=== PATIENT | female | born 1945 | race Caucasian/White ===

== ENCOUNTER 2020-02-05 01:42 | Inpatient (IN) | payer MEDICARE ==
[2020-02-05 02:09] LABS: #Eosinphils 0.1 thou/uL (0.0-0.7); #Lymphocytes 1.2 thou/uL (1.20-3.40); #Monocytes 0.8 thou/uL (0.11-0.59); %Basophils 0.5 % (0.0-1.0); %Eosinophils 0.8 % (0.0-10.0); %Lymphocytes 11.6 % (21.0-51.0); %Monocytes 8.3 % (0.0-10.0); %Neutrophils 78.8 % (42.0-75.0); Hemoglobin 14.9 g/dL (12.0-16.0); Mean Corpuscular HGB CONC 32.7 g/dL (32.0-36.0); Mean Corpuscular Hemoglobin 30.1 pg (27.0-31.0); Mean Platelet Volume 7.6 fL (7.4-10.4); Platelet Count 184 thou/uL (130-400); RBC Distribution Width 12.3 % (11.5-14.5); Red Blood Cell (RBC) Count 4.95 mill/uL (4.20-5.40); White Blood Cell (WBC) Count 10.1 thou/uL (4.8-10.8)
[2020-02-05] MEDS ORDERED: Diltiazem HCl 125 MG, Admixture Fee 1 EACH in Sodium Chloride 0.9% 100 ML IVPB SCH ×2 (02:15→06:17)
[2020-02-05 02:20] LABS: INR-International Normal Ratio 3.9; PTT 46.9 SEC (22.9-36.1); Prothrombin Time 38.1 SEC (12.0-14.7)
[2020-02-05 02:34] LABS: ALT (SGPT) 66 U/L (8-55); AST (SGOT) 37 U/L (5-34); Albumin 3.8 g/dL (3.4-4.8); Alkaline Phosphatase 100 U/L (40-110); Anion Gap 11 mmol/L (10-20); BUN (Urea Nitrogen) 15 mg/dL (9.8-20.1); Bilirubin, Total 0.5 mg/dL (0.2-1.2); Calc. Creatinine Clearance 0 mL/min (70-130); Calcium 8.9 mg/dL (7.8-10.44); Carbon Dioxide 29 mmol/L (23-31); Chloride 106 mmol/L (98-107); Estimated GFR-MDRD 69; Globulin 2.5 g/dL (2.4-3.5); Glucose 166 mg/dL (83-110); Protein, Total 6.3 g/dL (6.0-8.3); Sodium 142 mmol/L (136-145)
[2020-02-05] MEDS ORDERED: Furosemide 100 MG/10 ML VIAL ONE (04:23)
[2020-02-05 05:49] LABS: Troponin I 0.016 ng/mL (< 0.028)
[2020-02-05] MEDS ORDERED: Nitroglycerin 0.4 MG TAB (25 Tab Bottle) PO PRN (06:18)
[2020-02-05] MEDS ORDERED: Diltiazem 125 MG in Sodium Chloride 0.9% 100 ML IVPB SCH ×2 (06:30→17:21)
[2020-02-05] MEDS ORDERED: Calcium Carbonate 500 MG ChewTAB PO PRN (06:48)
[2020-02-05] MEDS ORDERED: Acetaminophen 325 MG TAB PO PRN (06:48)
[2020-02-05] MEDS ORDERED: Labetalol HCl 100 MG/20 ML VIAL SLOW IVP PRN (06:54)
[2020-02-05] MEDS ORDERED: Magnesium Sulfate 3 GM in Sodium Chloride 0.9% 100 ML IVPB SCH (07:00)
--- NOTE | 2020-02-05 07:35 | HP ---
PRIMARY CARE PHYSICIAN: Dr. Botello. PRIMARY HISTORIC INTERPRETER: Dr. Kowalski. CHIEF COMPLAINT: Palpitations. HISTORY OF PRESENT ILLNESS: The patient is a 75-year-old female with coronary artery disease with recent diagnosis of atrial fibrillation, on warfarin, presented to the emergency room with palpitations. The palpitations started around midnight. It was sudden in onset, associated with mild lightheadedness along with shortness of breath. Her heart rate was in 170s to 180s. She called EMS. No chest pain, lower extremity swelling, or abdominal discomfort reported. She denies any syncope. She is out of digoxin. No fever or chills reported. The patient was found to have atrial fibrillation with rapid ventricular response. She received IV Cardizem push by EMS. She is currently on Cardizem drip. PAST MEDICAL HISTORY: 1. Coronary artery disease, status post CABG x5 in 2003. 2. Obstructive sleep apnea. 3. History of TIA. 4. Recent diagnosis of atrial fibrillation. The patient also had atrial fibrillation post CABG. PAST SURGICAL HISTORY: 1. Coronary artery bypass grafting in 2003. 2. Nasal surgery for sleep apnea. 3. Tubal ligation. 4. 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 ALLERGIES: THE PATIENT DENIES ANY DRUG ALLERGIES. FAMILY HISTORY: Negative for heart disease. SOCIAL HISTORY: She is . No tobacco use. She is a retired teacher. She is full code and makes her own decision with the help of her family. CURRENT HOME MEDICATIONS: Her took her medications at home. She states that she is on, 1. Aspirin. 2. Lipitor. 3. Metoprolol. 4. Warfarin. 5. Benazepril. 6. Digoxin. 7. Lasix, dosages to be confirmed. REVIEW OF SYSTEMS: All other review of systems was reviewed and was found negative. PHYSICAL EXAMINATION: VITAL SIGNS: Temperature 98, respirations 20, pulse rate of 98, blood pressure of 143/92, and O2 saturation 92% on room air. GENERAL: A 75-year-old female in no apparent distress. HEENT: Head, atraumatic and normocephalic. Sclerae anicteric. Moist mucous membranes. No oral lesion. NECK: Supple. No JVD. No carotid bruit. LUNGS: Clear to auscultation bilaterally. No wheezing, rales, or rhonchi. HEART: S1 and S2 present. Irregularly irregular. No rubs or gallops. ABDOMEN: Soft, obese. Bowel sounds present. EXTREMITIES: Trace to 1+ edema in bilateral lower extremities. No calf tenderness. SKIN: Warm and dry. LYMPH NODES: No palpable lymph nodes in the neck. PERIPHERAL VASCULAR: Radial pulses palpable bilaterally. MUSCULOSKELETAL: No joint swelling tenderness. LABORATORY FINDINGS: CBC showed WBC 10.1 with hemoglobin 14.9, hematocrit 45.6, and platelet 184. INR 3.9. Chemistry showed sodium 142, potassium 4, chloride 106, bicarb 29, BUN of 15, and creatinine 0.81. AST of 37, ALT of 66. BNP 328. Troponin was negative. EKG by my review showed atrial fibrillation with rapid ventricular response. Chest x-ray by my review showed pulmonary vascular congestion. IMPRESSION: 1. Atrial fibrillation with rapid ventricular response. 2. Suspected congestive heart failure exacerbation. 3. Coronary artery disease, status post CABG in 2003. 4. Hypertension. 5. Hyperlipidemia. 6. History of obstructive sleep apnea. 7. Chronic kidney disease, stage 2. 8. Abnormal liver function tests, probably secondary to passive hepatic congestion. 9. Supratherapeutic INR. PLAN: The patient will be monitored on the telemetry unit. Cardizem drip will be continued. Cardiology will be consulted. We will check digoxin level with the next blood draw. Please note, the patient is out of digoxin. She recently had an echocardiogram at Dr. Kowalski's office. We will resume selected home medications. We will change Lasix to p.o. The patient understands the above plan of care. Job ID: [id number]
--- NOTE | 2020-02-05 08:40 | RAD ---
PORTABLE CHEST 1 VIEW: DATE: 02/05/2020. TIME: 1:42 AM. HISTORY: Palpitations, dyspnea. FINDINGS/IMPRESSION: Comparison is made with the exam of 01/16/2004. There are changes of median sternotomy. The heart is enlarged. The lungs are expanded with mild pro minence of the pulmonary vascularity. No lobar consolidation, pneumothoraces, or large effusions are seen. POS: [facility]
[2020-02-05 08:51] LABS: Digoxin 0.26 ng/mL (0.8-2.0)
[2020-02-05 08:56] LABS: Troponin I 0.015 ng/mL (< 0.028)
[2020-02-05] MEDS ORDERED: Furosemide 20 MG TAB PO SCH (09:00)
[2020-02-05] MEDS ORDERED: Metoprolol Tartrate 50 MG TAB PO SCH (09:00)
[2020-02-05 14:27] VITALS: BMI 36.6
[2020-02-05] MEDS ORDERED: Iopamidol-370 76% 500 ML 1 ML ONE (14:56)
[2020-02-05] MEDS: Furosemide 40 MG TAB PO SCH ×2 (15:36→16:00)
[2020-02-05] MEDS: Famotidine 20 MG TAB PO SCH ×2 (15:58→21:05)
[2020-02-05] MEDS: Aspirin 81 mg Enteric Coated Tablet PO SCH (16:00)
--- NOTE | 2020-02-05 18:01 | CT ---
CT PULMONARY ANGIOGRAM WITH IV CONTRAST AND 3D POSTPROCESSING: Date: 02/05/2020 HISTORY: Shortness of breath and tachycardia. FINDINGS: There is good contrast opacification of the pulmonary arterial vasculature without filling defects to suggest pulmonary embolism. There are vascular calcifications without evidence of aneurysmal dilatat ion of the thoracic aorta. No pericardial effusions seen. There are small bilateral pleural effusions (right larger than left) with adjacent infiltrates/atelectatic changes. No pneumothoraces are seen. There are degenerative changes in the spine. Upper abdominal tomograms are unremarkable. IMPRESSION: No CT evidence of pulmonary embolism. POS: [facility]
[2020-02-05] MEDS: Metoprolol Tartrate 25 MG TAB PO SCH (21:05)
[2020-02-05] MEDS: Atorvastatin Calcium 20 MG TAB PO SCH (21:05)
--- NOTE | 2020-02-06 01:06 | CON ---
DATE OF CONSULTATION: HISTORY OF PRESENT ILLNESS: Please refer the notes already dictated by my nurse practitioner, Reema Meehan. I have seen this patient with and would agree with her assessment and plan. We discussed the patient in detail and I would agree with the plan which is laid out. This is a very unfortunate lady who is 75 years old, has been found to have atrial fibrillation. She was seen in the office and was started on oral anticoagulation with the hopes that we could be able to at least anticoagulate her for about a month prior to undergoing to attempt electrocardioversion of her atrial fibrillation, either by medicine or by electrical cardioversion. She was at home recently and it was noted that she was having some shortness of breath and was checking her blood pressure. Blood pressure was significantly elevated. Her heart rate was also elevated and she presented to the emergency room and was found to be in atrial fibrillation with rapid ventricular response. Her blood pressure is in the 170s/100. This has improved after she receiving an IV diltiazem. She is still in atrial fibrillation, but the heart rate is under better control, but still in the low one 100s, anywhere between 90-100, but she denied any chest pain. We will continue to manage her medications. She had been placed previously on digoxin as well as beta-blockers and diltiazem for control of the heart rate. If we are unable to control the heart rate, she may need to undergo early cardioversion, but this would entail having to undergo a transesophageal echocardiogram prior to undergoing the cardioversion. We will see how she response to medications and we will discuss this further tomorrow morning. She also underwent a CT angiogram today, which showed no evidence of pulmonary emboli. Since she does complain of some shortness of breath, her echocardiogram in the office was performed on 01/29/2020, which showed a normal left ventricular systolic function, low normal ejection fraction of 50% to 55%. with mild left ventricular hypertrophy and biatrial enlargement. Her left atrium was 4.6. She had moderate mitral valve regurgitation as well as mild tricuspid valve regurgitation. The right ventricle did appear to be mildly dilated also. Today, her chest is clear to auscultation and cardiovascular exam reveals a tachycardia with an irregular regular rhythm. She had minimal lower extremity edema. Abdomen is unremarkable. IMPRESSION: Atrial fibrillation with a relatively recent onset, which is felt to be relatively recent, but uncertain as to the actual time of the onset of the atrial fibrillation. We will plan for medical management and then oral anticoagulation for at least a month prior to attempting cardioversion or early transesophageal cardiogram, if we cannot control the heart rate with either medications or electrical cardioversion. Hypertension. Her blood pressure is under better control at this time. We will need to continue to monitor her. She did have a good urine output and this has helped her blood pressure somewhat, but now her blood pressure is well controlled and stable. If it becomes too low, we may need to back off on some of her medications that have been started here in the hospital. We could decrease her labetalol or stop the labetalol IV and continue p.o. medications. Job ID: [id number]
[2020-02-06 04:38] LABS: #Eosinphils 0.2 thou/uL (0.0-0.7); #Lymphocytes 1.5 thou/uL (1.20-3.40); #Monocytes 0.8 thou/uL (0.11-0.59); #Neutrophils 5.3 thou/uL (1.40-6.50); %Basophils 0.2 % (0.0-1.0); %Eosinophils 2.3 % (0.0-10.0); %Lymphocytes 18.8 % (21.0-51.0); %Monocytes 10.8 % (0.0-10.0); Hemoglobin 13.8 g/dL (12.0-16.0); Mean Corpuscular HGB CONC 31.7 g/dL (32.0-36.0); Mean Corpuscular Hemoglobin 29.5 pg (27.0-31.0); Mean Corpuscular Volume 92.9 fL (78.0-98.0); Mean Platelet Volume 7.8 fL (7.4-10.4); Platelet Count 175 thou/uL (130-400); RBC Distribution Width 12.6 % (11.5-14.5); Red Blood Cell (RBC) Count 4.69 mill/uL (4.20-5.40); White Blood Cell (WBC) Count 7.8 thou/uL (4.8-10.8)
[2020-02-06 04:44] LABS: Prothrombin Time 39.2 SEC (12.0-14.7)
[2020-02-06 04:51] LABS: INR-International Normal Ratio 4.1
[2020-02-06 05:00] LABS: ALT (SGPT) 55 U/L (8-55); AST (SGOT) 30 U/L (5-34); Albumin 3.8 g/dL (3.4-4.8); Alkaline Phosphatase 94 U/L (40-110); Anion Gap 13 mmol/L (10-20); BUN (Urea Nitrogen) 10 mg/dL (9.8-20.1); Bilirubin, Total 0.6 mg/dL (0.2-1.2); Calc. Creatinine Clearance 111 mL/min (70-130); Calcium 8.5 mg/dL (7.8-10.44); Carbon Dioxide 31 mmol/L (23-31); Chloride 103 mmol/L (98-107); Estimated GFR-MDRD 77; Globulin 2.5 g/dL (2.4-3.5); Glucose 143 mg/dL (83-110); Potassium 3.5 mmol/L (3.5-5.1); Protein, Total 6.3 g/dL (6.0-8.3); Sodium 143 mmol/L (136-145)
--- NOTE | 2020-02-06 08:50 | CON ---
DATE OF CONSULTATION: PRIMARY CARE DOCTOR: Dr. Botello. PRIMARY HAUL TRUCK DRIVER: Dr. Jojo Kowalski. REASON FOR CARDIOLOGY CONSULTATION: Atrial fibrillation with rapid ventricular response. HISTORY OF PRESENT ILLNESS: Ms. Monreal is a very present 75-year-old female with significant history of coronary artery disease with a history of CABG x5 in 2003, hypertension, atrial fibrillation, sleep apnea, TIA, and hyperlipidemia. The patient was found to have atrial fibrillation at Dr. Kowalski' office about 2-1/2 weeks ago. At that time, digoxin 0.125 mg with loading dose was prescribed with Coumadin and after that, the patient agreed to have Eliquis. On 01/28, the patient followed up with Dr. Kowalski' office. At that time, the patient continued having atrial fibrillation with heart rate 70s to 120s. Metoprolol succinate 50 mg was increased from 1-1/2 tablet once a day to 1 tablet twice a day. The patient had an echocardiogram on 01/28, with EF 50% to 55%, mild left ventricular hypertrophy, biatrial enlargement, atrial fibrillation, moderate mitral valve regurgitation, mild tricuspid regurgitation, mild pulmonic regurgitation. IV appears mildly dilated. Last night around midnight, the patient started having lightheadedness, shortness of breath, and the patient's blood pressure was found to be 178/101 with heart rate around 180 to 105. The patient tried to check the blood pressure several times, which was continued to be high. Due to the reason, the patient called EMS. The patient was transferred to emergency department for further evaluation and treatment. At the ER, the patient was found to have heart rate 130s. At this moment, the patient is on Cardizem drip 5 mg an hour with heart rate 90s to 130s. The patient denied chest pain, heaviness, tightness, dizziness, numbness in the left arm, except that she complained of shortness of breath and lightheadedness. The patient had an echocardiogram done 01/29/2020, with EF 50% to 55%, with biatrial enlargement. LA dimension is 4.6. The patient had CABG x5 in 2003 with MATUTE to LAD, RSV to ramus, RSV to OM, RSV and RSV to PL branch. The patient has a stress test in October 2018 with no reversible ischemia with EF 62%. MEDICAL HISTORY: 1. Atrial fibrillation. 2. CAD. 3. Sleep apnea. 4. TIA. 5. Hypertension. 6. Hyperlipidemia. PAST SURGICAL HISTORY: CABG x5 in 2003, corneal transplant, nasal surgery for sleep apnea, and bilateral tubal ligation. FAMILY HISTORY: Negative for heart disease. SOCIAL HISTORY: She is . She is retired. She is living with her . She denies EtOH, tobacco, or illicit drug abuse. She is a retired teacher. She does not exercise. ALLERGIES: SHE HAS NO KNOWN DRUG ALLERGIES. MEDICATIONS: 1. Multivitamin. 2. Aspirin 81 mg once a day. 3. Zyrtec 10 mg once a day. 4. Digoxin 0.125 mg once a day. 5. Lipitor 20 mg once a day. 6. Benazepril 40 mg once a day. 7. Lasix 20 mg once a day. 8. Eliquis 5 mg twice a day. 9. Metoprolol succinate 50 mg 1 tablet twice a day. REVIEW OF SYSTEMS: 12-point review of systems negative unless otherwise mentioned in HPI. The patient reports that today she continued taking digoxin until yesterday. Today, she ran out the medicine, but her already picked up the medicine from pharmacy today. PHYSICAL EXAMINATION: VITAL SIGNS: Blood pressure 108/67, temperature 97.8, pulse is 104, respiratory rate 18, O2 saturation 94% on room air,. GENERAL: The patient is alert and oriented x4, not in acute distress. HEENT: Normocephalic, atraumatic. Eyes, extraocular muscle movement intact. ENT and mouth; oral and nasal mucosa moist without lesion. NECK: Supple. Normal range of motion. No JVD. RESPIRATORY: Clear to auscultate bilaterally. No wheezing, rales, or rhonchi noted. CARDIOVASCULAR: Irregularly irregular. No S3 or S4. No significant murmur, hives, or thrill noted. 2+ pulses in bilateral upper and lower extremities. No edema in the lower extremities. ABDOMEN: Soft, nontender. No mass to palpitate. Bowel sounds are present. SKIN: Warm and dry. No lesion, rash, or erythema noted. NEUROLOGICAL: The patient is alert and oriented x4. Nonfocal. PSYCHIATRIC: The patient's mood is appropriate. LABORATORY DATA: WBC 10.1, hemoglobin 14.9, hematocrit 45.6, platelet 184. INR 3.9. Sodium 142, potassium 4.0, BUN 15, creatinine 0.81, glucose 166, magnesium 1.7. AST 37, ALT 66. Troponin is 0.016, 0.016, and 0.015. BNP is 328. Digoxin level is 0.26. The patient's x-ray showing enlarged heart, the patient's lungs are expanded with mild prominence of pulmonary vascularity. No lobar consolidation, pneumothorax, trace or large effusion seen. ASSESSMENT AND PLAN: 1. Atrial fibrillation with rapid ventricular response. The patient is on diltiazem 5 mg heart rate 90 to 130s. Diltiazem is going to be increased to 7.5 mg . She is on metoprolol 50 mg twice a day, which I would like to decrease to 25 mg once a day with diltiazem. Her INR is 3.9, her Coumadin is on hold and once the patient's INR down to less than 3, Eliquis is going to be started. At this moment, the patient is asymptomatic. We would like to continue to monitor the patient on the telemetry. 2. mildly hypotensive. We would like to continue to monitor this patient's vital signs and adjust patient medication as appropriate. 3. Coronary artery disease with history of CABG x5 in 2003. The patient's condition is stable at this moment. The patient is on beta valentin, atorvastatin, aspirin. 4. Hyperlipidemia. Again, the patient is on atorvastatin at this moment. Thank you very much for Cardiology Service to participate in the care of this patient. We will follow along the patient's care team and make further recommendations as appropriate. Job ID: [id number]
[2020-02-06] MEDS: Furosemide 40 MG TAB PO SCH ×2 (09:55→13:42)
[2020-02-06] MEDS: Aspirin 81 mg Enteric Coated Tablet PO SCH (09:55)
[2020-02-06] MEDS: Metoprolol Tartrate 25 MG TAB PO SCH ×2 (09:55→20:43)
[2020-02-06] MEDS: Famotidine 20 MG TAB PO SCH ×2 (09:55→20:42)
--- NOTE | 2020-02-06 10:51 | PDOC.HOSPP ---
- Subjective Encounter Date: 02/06/20 Subjective: No new complains - Objective Vital Signs & Weight: Vital Signs (12 hours) Temp Pulse Resp BP Pulse Ox 02/06/20 07:24 96.3 F L 89 20 147/82 H 92 L 02/06/20 03:49 97.7 F 73 18 116/63 94 L Weight Weight 243 lb I&O: 02/05/20 02/06/20 02/07/20 06:59 06:59 06:59 Intake Total 1170 Output Total 815 Balance 355 Result Diagrams: 02/06/20 04:08 02/06/20 04:08 Hospitalist ROS - Medication Medications: Active Medications Generic Name Dose Route Start Last Admin Trade Name Freq PRN Reason Stop Dose Admin Aspirin 81 mg 02/05/20 09:00 02/06/20 09:55 Ecotrin PO 81 mg DAILY AZAR Administration Atorvastatin Calcium 20 mg 02/05/20 21:00 02/05/20 21:05 Lipitor PO 20 mg HS AZAR Administration Famotidine 20 mg 02/05/20 09:00 02/06/20 09:55 Pepcid PO 20 mg BID AZAR Administration Furosemide 40 mg 02/05/20 09:00 02/06/20 09:55 Lasix PO 40 mg 0900,1400 AZAR Administration Diltiazem HCl 125 mg/ Sodium 125 mls @ 7.5 mls/hr 02/05/20 17:21 02/06/20 00: 07 Chloride IVPB 125 mls INF AZAR Administration Protocol 7.5 MG/HR Metoprolol Tartrate 25 mg 02/05/20 21:00 02/06/20 09:55 Lopressor PO 25 mg BID AZAR Administration - Exam General Appearance: NAD Eye: PERRL ENT: normocephalic atraumatic Neck: supple Heart: irregular Respiratory: CTAB, no wheezes, no rales, no ronchi, normal chest expansion Gastrointestinal: soft, non-tender, non-distended, normal bowel sounds Neurological: cranial nerve grossly intact, no focal deficits Hosp A/P (1) Atrial fibrillation with rapid ventricular response Code(s): I48.91 - UNSPECIFIED ATRIAL FIBRILLATION Status: Acute (2) CAD (coronary artery disease) Code(s): I25.10 - ATHSCL HEART DISEASE OF [place] CORONARY ARTERY W/O ANG PCTRS Status: Acute (3) HTN (hypertension) Code(s): I10 - ESSENTIAL (PRIMARY) HYPERTENSION Status: Acute (4) Chronic diastolic (congestive) heart failure Code(s): I50.32 - CHRONIC DIASTOLIC (CONGESTIVE) HEART FAILURE Status: Acute - Plan *Rate controlled on Diltiazem drip 7.g mg/hrs and metoprolol tartrate 5 mg po bid. Continue management per cardiology. Start Eliquid when IRN is 3 or below. INR 4.1 today. *CTA negative for acute abnormalities.
[2020-02-06 14:32] LABS: INR-International Normal Ratio 3.9; Prothrombin Time 37.9 SEC (12.0-14.7)
--- NOTE | 2020-02-06 15:22 | PDOC.CPN ---
- Subjective Date: 02/06/20 Time: 15:28 Interval history: The pt seen and examined. No overnight events. No cardiac complaints. - Objective Allergies/Adverse Reactions: Allergies Allergy/AdvReac Type Severity Reaction Status Date / Time No Known Drug Allergies Allergy Unverified 02/05/20 02:13 Visit Medications: Current Medications Acetaminophen (Tylenol) 650 mg PO Q4H PRN PRN Reason: Headache/Fever/Mild Pain (1-3) Aspirin (Ecotrin) 81 mg PO DAILY [facility] Last Admin: 02/06/20 09:55 Dose: 81 mg Atorvastatin Calcium (Lipitor) 20 mg PO HS [facility] Last Admin: 02/05/20 21:05 Dose: 20 mg Calcium Carbonate (Tums) 1,000 mg PO Q4H PRN PRN Reason: Heartburn or Indigestion Famotidine (Pepcid) 20 mg PO BID [facility] Last Admin: 02/06/20 09:55 Dose: 20 mg Furosemide (Lasix) 40 mg PO 0900,1400 [facility] Last Admin: 02/06/20 13:42 Dose: 40 mg Diltiazem HCl 125 mg/ Sodium (Chloride) 125 mls @ 7.5 mls/hr IVPB INF [facility]; Protocol Last Admin: 02/06/20 00:07 Dose: 125 mls Metoprolol Tartrate (Lopressor) 25 mg PO BID [facility] Last Admin: 02/06/20 09:55 Dose: 25 mg Miscellaneous Medication (Pharmacy To Dose) 1 each PO .WARFARIN [facility] Nitroglycerin (Nitrostat) 0.4 mg PO Q5MIN PRN PRN Reason: Chest Pain Senna/Docusate Sodium (Senokot S) 2 tab PO BID PRN PRN Reason: Constipation Sodium Chloride (Flush - Normal Saline) 10 ml IVF PRN PRN PRN Reason: Saline Flush Vital Signs & Weight: Vital Signs Temp Pulse Resp BP Pulse Ox 02/06/20 12:28 97.7 F 89 17 137/71 92 L 02/06/20 07:24 96.3 F L 89 20 147/82 H 92 L 02/06/20 03:49 97.7 F 73 18 116/63 94 L Weight 243 lb - Physical Exam General: alert & oriented x3 HEENT: mucus membranes moist Neck: supple neck Cardiac: irregularly regular Lungs: clear to auscultation Neuro: cranial nerve 2-12 intact Extremities: no edema - Labs Result Diagrams: 02/06/20 04:08 02/06/20 04:08 Troponin/CKMB Troponin I 0.015 ng/mL (< 0.028) 02/05/20 08:09 - Telemetry Supraventricular conduction: atrial fibrillation - Assessment/Plan Assessment/Plan: 1. Afib with RVR - HR has been 70-120s; on Diltiazem 7.5mg/h, Metoprolol 25mg BID; not on OAC for now due to INR 3.9 today; Will start Eliquis once INR is close to 2. 2. HTN urgency - stable 3. CAD with Hx of CABG x5 in 2003 - On BBlocker, ASA, and Statin 4. HLD - on Statin MAR reviewed Pt. seen and eval. by me. I agree with the A/P by the [employer] REPRESENTATIVE. Will decrease IV diltiazem or switch to po and if the rate remains controlled could go home on oral meds. I would like to continue OAC for another couple weeks prior to attempting cardioversion either medically or with electrical cardioversion. Switch to eliquis when the INR is < 2.0. The BP is under good control. Chest: clear. Irreg/irreg. Mild edema. gjmays
[2020-02-06] MEDS ORDERED: Diltiazem 125 MG in Sodium Chloride 0.9% 100 ML IVPB SCH ×2 (15:42→15:48)
[2020-02-06] MEDS: Atorvastatin Calcium 20 MG TAB PO SCH (20:42)
[2020-02-06] MEDS: Diltiazem HCl SR 90 mg Capsule PO SCH (20:42)
[2020-02-07 04:40] LABS: INR-International Normal Ratio 3.4; Prothrombin Time 33.8 SEC (12.0-14.7)
[2020-02-07] MEDS ORDERED: Lisinopril 10 MG TAB PO SCH (09:45)
[2020-02-07] MEDS: Furosemide 40 MG TAB PO SCH ×2 (09:57→14:07)
[2020-02-07] MEDS: Diltiazem HCl SR 90 mg Capsule PO SCH ×2 (09:57→20:22)
[2020-02-07] MEDS: Famotidine 20 MG TAB PO SCH ×2 (09:57→20:22)
[2020-02-07] MEDS: Aspirin 81 mg Enteric Coated Tablet PO SCH (09:57)
[2020-02-07] MEDS: Metoprolol Tartrate 25 MG TAB PO SCH (09:58)
[2020-02-07] MEDS ORDERED: Digoxin 0.5 MG/2 ML AMP SLOW IVP SCH (10:00)
--- NOTE | 2020-02-07 10:00 | PDOC.CPN ---
- Subjective Date: 02/07/20 Time: 09:45 - Review of Systems General: reports: weight/appetite/sleep changes Respiratory: reports: cough, shortness of breath Cardiovascular: reports: chest pain, edema, orthopnea Gastrointestinal: reports: nausea, vomiting Musculoskeletal: reports: swelling Neurological: reports: weakness - Objective Allergies/Adverse Reactions: Allergies Allergy/AdvReac Type Severity Reaction Status Date / Time No Known Drug Allergies Allergy Verified 02/06/20 20:39 Visit Medications: Current Medications Acetaminophen (Tylenol) 650 mg PO Q4H PRN PRN Reason: Headache/Fever/Mild Pain (1-3) Aspirin (Ecotrin) 81 mg PO DAILY [facility] Last Admin: 02/06/20 09:55 Dose: 81 mg Atorvastatin Calcium (Lipitor) 20 mg PO HS [facility] Last Admin: 02/06/20 20:42 Dose: 20 mg Calcium Carbonate (Tums) 1,000 mg PO Q4H PRN PRN Reason: Heartburn or Indigestion Digoxin (Lanoxin) 0.5 mg SLOW IVP NOW [facility] Diltiazem HCl (Cardizem Sr) 90 mg PO BID [facility] Last Admin: 02/06/20 20:42 Dose: 90 mg Famotidine (Pepcid) 20 mg PO BID [facility] Last Admin: 02/06/20 20:42 Dose: 20 mg Furosemide (Lasix) 40 mg PO 0900,1400 [facility] Last Admin: 02/06/20 13:42 Dose: 40 mg Lisinopril (Zestril) 10 mg PO DAILY [facility] Lisinopril (Zestril) 10 mg PO NOW [facility] Stop: 02/07/20 11:45 Metoprolol Tartrate (Lopressor) 50 mg PO BID [facility] Miscellaneous Medication (Pharmacy To Dose) 1 each PO .WARFARIN [facility] Nitroglycerin (Nitrostat) 0.4 mg PO Q5MIN PRN PRN Reason: Chest Pain Senna/Docusate Sodium (Senokot S) 2 tab PO BID PRN PRN Reason: Constipation Sodium Chloride (Flush - Normal Saline) 10 ml IVF PRN PRN PRN Reason: Saline Flush Vital Signs & Weight: Vital Signs Temp Pulse Resp BP Pulse Ox 02/07/20 08:08 93 L 02/07/20 07:42 93 L 02/07/20 07:29 97.6 F 86 22 H 173/89 H 90 L 02/07/20 05:28 97 02/07/20 03:38 97.4 F L 90 20 141/94 H 94 L Weight 243 lb - CHADS-VASc Hypertension: 1 Age >75: 2 Female: 1 Risk Score: 4 - Quality Measures Condition: Atrial Fibrillation/Flutter (hx or current) CV meds: Beta Ashwin: Yes, ISABEL/ARB: Yes, Statin: Yes - Physical Exam HEENT: normocephaly Neck: no JVD/HJR, no bruit Cardiac: irregularly regular, systolic murmur (at the apex.I-II/Vi) Lungs: clear to auscultation, no wheezes, no rales, no rhonchi Neuro: grossly intact Abdomen: unremarkable Extremities: no edema Musculoskeletal: normal range of motion - Labs Result Diagrams: 02/06/20 04:08 02/06/20 04:08 Troponin/CKMB Troponin I 0.015 ng/mL (< 0.028) 02/05/20 08:09 - Telemetry Supraventricular conduction: atrial fibrillation (rate is still not controlled) - Assessment/Plan Assessment/Plan: 1. Afib with RVR - HR has been 70-120s; on Diltiazem 7.5mg/h, Metoprolol 25mg BID; not on OAC for now due to INR 3.9 today; Will start Eliquis once INR is close to 2. 2. HTN urgency - stable 3. CAD with Hx of CABG x5 in 2003 - On BBlocker, ASA, and Statin 4. HLD - on Statin MAR reviewed Yesterday I started po diltiazem, stopped the IV dilt., will increase metoprolol and start digoxin for the Afib. with RVR. For the HTN will also resume the Lotensin that she ws taking prior to admission. When the BP and HR are stable she can be d/c'd.
[2020-02-07] MEDS ORDERED: Metoprolol Tartrate 50 MG TAB PO SCH (10:15)
--- NOTE | 2020-02-07 10:39 | PDOC.HOSPP ---
- Subjective Encounter Date: 02/07/20 Subjective: Feels better - Objective Vital Signs & Weight: Vital Signs (12 hours) Temp Pulse Resp BP Pulse Ox 02/07/20 08:08 93 L 02/07/20 07:42 93 L 02/07/20 07:29 97.6 F 86 22 H 173/89 H 90 L 02/07/20 05:28 97 02/07/20 03:38 97.4 F L 90 20 141/94 H 94 L Weight Weight 243 lb I&O: 02/06/20 02/07/20 02/08/20 06:59 06:59 06:59 Intake Total 1170 300 Output Total 815 400 Balance 355 -100 Result Diagrams: 02/06/20 04:08 02/06/20 04:08 Hospitalist ROS - Medication Medications: Active Medications Generic Name Dose Route Start Last Admin Trade Name Freq PRN Reason Stop Dose Admin Aspirin 81 mg 02/05/20 09:00 02/07/20 09:57 Ecotrin PO 81 mg DAILY AZAR Administration Atorvastatin Calcium 20 mg 02/05/20 21:00 02/06/20 20:42 Lipitor PO 20 mg HS AZAR Administration Digoxin 0.5 mg 02/07/20 10:00 02/07/20 10:13 Lanoxin SLOW IVP 02/07/20 12:00 0.5 mg NOW AZAR Administration Diltiazem HCl 90 mg 02/06/20 21:00 02/07/20 09:57 Cardizem Sr PO 90 mg BID AZAR Administration Famotidine 20 mg 02/05/20 09:00 02/07/20 09:57 Pepcid PO 20 mg BID AZAR Administration Furosemide 40 mg 02/05/20 09:00 02/07/20 09:57 Lasix PO 40 mg 0900,1400 AZAR Administration Lisinopril 10 mg 02/07/20 09:45 02/07/20 09:57 Zestril PO 02/07/20 11:45 10 mg NOW AZAR Administration Metoprolol Tartrate 50 mg 02/07/20 10:15 02/07/20 10:13 Lopressor PO 02/07/20 12:15 50 mg NOW AZAR Administration - Exam General Appearance: NAD Eye: PERRL ENT: normocephalic atraumatic Neck: supple, no JVD Heart: no murmur, no gallops, no rubs, irregular Respiratory: CTAB Gastrointestinal: soft, non-tender, non-distended, normal bowel sounds Extremities: no cyanosis Skin: normal turgor Neurological: cranial nerve grossly intact, no focal deficits Psychiatric: normal affect Hosp A/P (1) Atrial fibrillation with rapid ventricular response Code(s): I48.91 - UNSPECIFIED ATRIAL FIBRILLATION Status: Acute (2) CAD (coronary artery disease) Code(s): I25.10 - ATHSCL HEART DISEASE OF [place] CORONARY ARTERY W/O ANG PCTRS Status: Acute (3) HTN (hypertension) Code(s): I10 - ESSENTIAL (PRIMARY) HYPERTENSION Status: Acute (4) Chronic diastolic (congestive) heart failure Code(s): I50.32 - CHRONIC DIASTOLIC (CONGESTIVE) HEART FAILURE Status: Acute - Plan 02/05: *Rate controlled on Diltiazem drip 7.g mg/hrs and metoprolol tartrate 5 mg po bid. Continue management per cardiology. Start Eliquid when IRN is 3 or below. INR 4.1 today. *CTA negative for acute abnormalities. 02/06: Diltiazem drip discontinued. Continue PO Diltiazem, metoprolol, and digoxin. INR remains supratherapeutic. DC pending rate control.
[2020-02-07] MEDS: Digoxin 0.5 MG/2 ML AMP SLOW IVP SCH ×2 (17:17→23:00)
[2020-02-07] MEDS: Atorvastatin Calcium 20 MG TAB PO SCH (20:22)
[2020-02-07] MEDS: Metoprolol Tartrate 50 MG TAB PO SCH (20:23)
[2020-02-08 04:18] LABS: INR-International Normal Ratio 2.2; Prothrombin Time 24.3 SEC (12.0-14.7)
[2020-02-08] MEDS: Diltiazem HCl SR 90 mg Capsule PO SCH (08:09)
[2020-02-08] MEDS: Digoxin 0.25 MG TAB PO SCH (08:09)
[2020-02-08] MEDS: Aspirin 81 mg Enteric Coated Tablet PO SCH (08:09)
[2020-02-08] MEDS: Lisinopril 10 MG TAB PO SCH (08:09)
[2020-02-08] MEDS: Metoprolol Tartrate 50 MG TAB PO SCH ×2 (08:10→20:18)
[2020-02-08] MEDS: Furosemide 40 MG TAB PO SCH ×2 (08:10→12:52)
[2020-02-08] MEDS: Famotidine 20 MG TAB PO SCH ×2 (08:10→20:18)
[2020-02-08] MEDS: Senokot S 8.6-50 MG TAB PO PRN (08:13)
[2020-02-08] MEDS: Apixaban 5 MG TAB PO SCH ×2 (09:54→20:18)
--- NOTE | 2020-02-08 15:14 | PRG ---
DATE OF SERVICE: 02/08/2020 SUBJECTIVE: Ms. Monreal is doing better. No current complaints of chest pain or pressure. Her rhythm is uptrending. She was in the 80s to 90s, and now is in the 90s to 1-teens. She is currently on Cardizem in addition to metoprolol. Her INR this morning was 2.2. OBJECTIVE: VITAL SIGNS: Blood pressure 146/88, pulse 83, temperature 97.5. GENERAL: The patient is a pleasant female, in no acute distress, appears stated age. HEAD, EYES, EARS, NOSE AND THROAT: Sclerae without icterus. Mouth: Moist mucous membranes, normal palate. NECK: No jugular venous distention. Carotid upstroke is brisk. No bruits bilaterally. LUNGS: Clear to auscultation. HEART: Irregularly irregular. ABDOMEN: Soft, nontender, nondistended. EXTREMITIES: No edema. PERTINENT LABORATORY DATA: Hemoglobin 13.8, hematocrit 43.6. IMPRESSION: Atrial fibrillation. RECOMMENDATIONS: 1. Increase Cardizem from 90 mg p.o. b.i.d. to 240 q.a.m. 2. Change Coumadin to abciximab. 3. Continue digoxin in addition to metoprolol. 4. Once the patient's heart rate is stable, she will be okay from my standpoint for discharge with close outpatient followup. Job ID: [id number]
[2020-02-08] MEDS: Atorvastatin Calcium 20 MG TAB PO SCH (20:18)
[2020-02-09 04:37] LABS: INR-International Normal Ratio 2.2; Prothrombin Time 24.3 SEC (12.0-14.7)
[2020-02-09] MEDS ORDERED: Diltiazem HCl SR 90 mg Capsule PO SCH (09:00)
[2020-02-09] MEDS: Aspirin 81 mg Enteric Coated Tablet PO SCH (10:02)
[2020-02-09] MEDS: Lisinopril 10 MG TAB PO SCH (10:03)
[2020-02-09] MEDS: Apixaban 5 MG TAB PO SCH (10:03)
[2020-02-09] MEDS: Metoprolol Tartrate 50 MG TAB PO SCH (10:03)
[2020-02-09] MEDS: Furosemide 40 MG TAB PO SCH (10:04)
[2020-02-09] MEDS: Famotidine 20 MG TAB PO SCH (10:04)
[2020-02-09] MEDS: Digoxin 0.25 MG TAB PO SCH (10:04)
[2020-02-09] MEDS: Senokot S 8.6-50 MG TAB PO PRN (10:08)
[2020-02-09 12:02] VITALS: BP 132/83; TEMP 98.4
--- NOTE | 2020-02-09 12:40 | PDOC.HOSPP ---
- Subjective Encounter Date: 02/08/20 - Objective Vital Signs & Weight: Vital Signs (12 hours) Temp Pulse Pulse Pulse Resp BP BP 02/09/20 11:20 98.4 F 73 15 02/09/20 10:33 92 96 144/81 H 131/99 H 02/09/20 10:04 92 02/09/20 07:36 02/09/20 07:14 97.9 F 92 21 H 02/09/20 03:08 98.5 F 75 18 BP Pulse Ox Pulse Ox Pulse Ox 02/09/20 11:20 132/83 96 02/09/20 10:33 94 L 93 L 02/09/20 10:04 02/09/20 07:36 94 L 02/09/20 07:14 132/61 94 L 02/09/20 03:08 124/58 L 93 L Weight Weight 234 lb 11.2 oz I&O: 02/08/20 02/09/20 02/10/20 06:59 06:59 06:59 Intake Total 1200 1770 Output Total 2000 Balance 1200 -230 Result Diagrams: 02/06/20 04:08 02/06/20 04:08 Hospitalist ROS - Medication Medications: Active Medications Generic Name Dose Route Start Last Admin Trade Name Freq PRN Reason Stop Dose Admin Apixaban 5 mg 02/08/20 09:00 02/09/20 10:03 Eliquis PO 5 mg BID AZAR Administration Aspirin 81 mg 02/05/20 09:00 02/09/20 10:02 Ecotrin PO 81 mg DAILY AZAR Administration Atorvastatin Calcium 20 mg 02/05/20 21:00 02/08/20 20:18 Lipitor PO 20 mg HS AZAR Administration Calcium Carbonate 1,000 mg 02/05/20 06:48 02/08/20 12:57 Tums PO 1,000 mg Q4H PRN Administration Heartburn or Indigestion Digoxin 0.25 mg 02/08/20 09:00 02/09/20 10:04 Lanoxin PO 0.25 mg QAM AZAR Administration Famotidine 20 mg 02/05/20 09:00 02/09/20 10:04 Pepcid PO 20 mg BID AZAR Administration Furosemide 40 mg 02/05/20 09:00 02/09/20 10:04 Lasix PO 40 mg 0900,1400 AZAR Administration Lisinopril 10 mg 02/08/20 09:00 02/09/20 10:03 Zestril PO 10 mg DAILY AZAR Administration Metoprolol Tartrate 50 mg 02/07/20 21:00 02/09/20 10:03 Lopressor PO 50 mg BID AZAR Administration Senna/Docusate Sodium 2 tab 02/05/20 06:48 02/09/20 10:08 Senokot S PO 2 tab BID PRN Administration Constipation Sodium Chloride 10 ml 02/05/20 06:18 02/08/20 20:18 Flush - Normal Saline IVF 10 ml PRN PRN Administration Saline Flush - Exam General Appearance: NAD ENT: normocephalic atraumatic Neck: supple, no JVD Heart: irregular Respiratory: CTAB, no wheezes, no rales, no ronchi Gastrointestinal: soft, non-tender, non-distended, normal bowel sounds Neurological: cranial nerve grossly intact, no focal deficits Hosp A/P (1) Atrial fibrillation with rapid ventricular response Code(s): I48.91 - UNSPECIFIED ATRIAL FIBRILLATION Status: Acute (2) CAD (coronary artery disease) Code(s): I25.10 - ATHSCL HEART DISEASE OF [place] CORONARY ARTERY W/O ANG PCTRS Status: Acute (3) HTN (hypertension) Code(s): I10 - ESSENTIAL (PRIMARY) HYPERTENSION Status: Acute (4) Chronic diastolic (congestive) heart failure Code(s): I50.32 - CHRONIC DIASTOLIC (CONGESTIVE) HEART FAILURE Status: Acute - Plan 02/05: *Rate controlled on Diltiazem drip 7.g mg/hrs and metoprolol tartrate 5 mg po bid. Continue management per cardiology. Start Eliquid when IRN is 3 or below. INR 4.1 today. *CTA negative for acute abnormalities. 02/06: Diltiazem drip discontinued. Continue PO Diltiazem, metoprolol, and digoxin. INR remains supratherapeutic. DC pending rate control. 02/07: Her rate continues to fluctuate. INR 2.2 Restart eliquis tomorrow. Awaiting cardiology recs.
--- NOTE | 2020-02-10 09:07 | DIS ---
DATE OF ADMISSION: 02/05/2020 DATE OF DISCHARGE: 02/09/2020 HISTORY OF PRESENT ILLNESS AND HOSPITAL COURSE: The patient is a 75-year-old female with past medical history of coronary artery disease, status post CABG, TIA, atrial fibrillation, and obstructive sleep apnea, who presents to the hospital with palpitations. She was found to be in atrial fibrillation with rapid ventricular response at rate of 170s to 180s. The patient stated that she ran out of her digoxin. She was placed on IV Cardizem drip for rate control and admitted to the hospital. Cardiology Service was consulted and the patient was started on IV digoxin load, then oral digoxin in addition to metoprolol and diltiazem orally for rate control. Rate control was achieved and diltiazem drip was discontinued within 24 hours. The patient remained stable over the last 12 hours with controlled rate and adequate blood pressure. DISCHARGE DIAGNOSES: 1. Atrial fibrillation with rapid ventricular response. 2. Coronary artery disease. 3. Hypertension. 4. Chronic diastolic congestive heart failure. DISCHARGE MEDICATIONS: 1. Apixaban 5 mg orally twice daily. 2. Diltiazem 90 mg orally twice daily. 3. Lasix 40 mg orally daily. 4. Metoprolol succinate 50 mg orally twice daily. 5. Digoxin 0.125 mg orally daily. DISCHARGE INSTRUCTIONS: The patient was instructed to follow up with her PCP in 1 week and to continue taking her medications as prescribed. Job ID: [id number]
--- NOTE | 2020-02-10 14:12 | EKG ---
Test Reason : Blood Pressure : / mmHG Vent. Rate : 082 BPM Atrial Rate : 300 BPM P-R Int : 000 ms QRS Dur : 078 ms QT Int : 378 ms P-R-T Axes : 000 -01 259 degrees QTc Int : 441 ms Atrial fibrillation Low voltage QRS Nonspecific T wave abnormality , probably digitalis effect Abnormal ECG Confirmed by JEFFREY HERNANDEZ DO ([id number]), fashion editor [employer]RACH[employer]O TABOR ([id number]) on 02/10/2020 2:12:04 PM Referred By: Confirmed By:JEFFREY HERNANDEZ DO
== END 2020-02-09 14:50 | disposition home or self-care (01) | DRG 309 ==
LOC: ERS 01:42 → ERHOLD 05:28 → 2NO 13:58
PROVIDERS: ADMIT Internal Medicine; ATTEND Internal Medicine
DX: I48.91 Unspecified atrial fibrillation (principal); I13.0 Hypertensive heart and chronic kidney disease with heart failure and stage 1 through stage 4 chronic kidney disease, or unspecified chronic kidney disease; I50.32 Chronic diastolic (congestive) heart failure; I25.10 Atherosclerotic heart disease of native coronary artery without angina pectoris; G47.33 Obstructive sleep apnea (adult) (pediatric); E78.5 Hyperlipidemia, unspecified; R79.89 Other specified abnormal findings of blood chemistry; R79.1 Abnormal coagulation profile; I16.0 Hypertensive urgency; N18.2 Chronic kidney disease, stage 2 (mild); Z95.1 Presence of aortocoronary bypass graft; Z86.73 Personal history of transient ischemic attack (TIA), and cerebral infarction without residual deficits; Z98.51 Tubal ligation status; Z94.7 Corneal transplant status; Z79.82 Long term (current) use of aspirin; Z79.899 Other long term (current) drug therapy
CPT/HCPCS: 36415; 71045; 71275; 80053; 80162; 83735; 83880; 84484; 85025; 85610; 85730; 93005; 93798; 94760; 96365; 96366; 96375; J1160; J1940; J3475; J3490; Q9967

== ENCOUNTER 2020-04-09 06:39 | Outpatient (CLI) | payer MEDICARE, OTHER ==
[2020-04-09 12:20] LABS: #Eosinphils 0.2 thou/uL (0.0-0.7); #Lymphocytes 1.7 thou/uL (1.20-3.40); #Monocytes 1.1 thou/uL (0.11-0.59); #Neutrophils 8.6 thou/uL (1.40-6.50); %Basophils 0.3 % (0.0-1.0); %Eosinophils 1.4 % (0.0-10.0); %Lymphocytes 14.9 % (21.0-51.0); %Monocytes 9.4 % (0.0-10.0); %Neutrophils 74.1 % (42.0-75.0); Hemoglobin 14.9 g/dL (12.0-16.0); Mean Corpuscular HGB CONC 31.5 g/dL (32.0-36.0); Mean Corpuscular Hemoglobin 28.9 pg (27.0-31.0); Mean Corpuscular Volume 91.8 fL (78.0-98.0); Mean Platelet Volume 7.7 fL (7.4-10.4); Platelet Count 209 thou/uL (130-400); RBC Distribution Width 11.8 % (11.5-14.5); Red Blood Cell (RBC) Count 5.16 mill/uL (4.20-5.40); White Blood Cell (WBC) Count 11.6 thou/uL (4.8-10.8)
[2020-04-09 12:34] LABS: INR-International Normal Ratio 1.2; PTT 31.3 SEC (22.9-36.1); Prothrombin Time 15.1 sec (12.0-14.7)
[2020-04-09 12:38] LABS: Anion Gap 14 mmol/L (10-20); BUN (Urea Nitrogen) 10 mg/dL (9.8-20.1); Calc. Creatinine Clearance 0 mL/min (70-130); Calcium 9.2 mg/dL (7.8-10.44); Carbon Dioxide 24 mmol/L (23-31); Chloride 103 mmol/L (98-107); Estimated GFR-MDRD 68; Glucose 211 mg/dL (83-110); Potassium 3.9 mmol/L (3.5-5.1); Sodium 137 mmol/L (136-145)
[2020-04-09 18:04] LABS: SARS-CoV-2 MS2 Positive; SARS-CoV-2 N Gene Negative; SARS-CoV-2 S Gene Negative; SARS-CoV-2 orf1ab Negative
== END 2020-04-09 06:40 | disposition home or self-care (01) ==
LOC: LABBT 06:39
PROVIDERS: ATTEND Internal Medicine Cardiovascular Disease
DX: Z01.812 Encounter for preprocedural laboratory examination (principal); Z11.59 Encounter for screening for other viral diseases; I48.0 Paroxysmal atrial fibrillation
CPT/HCPCS: 80048; 85025; 85610; 85730; U0003; 87635

== ENCOUNTER 2024-01-31 11:30 | Observation (INO) | payer MEDICARE ==
[2024-01-31 12:32] LABS: Bilirubin Neg (Negative); Blood, Urine 10 (Negative); Clarity Clear (Clear); Glucose, Urine (Dipstick) Normal (Negative); Ketone, Urine Negative (Negative); Leukocyte 100 (Negative); Nitrite Negative (Negative); Protein, Urine (Dipstick) Negative (Neg-Trace); Urobilinogen Normal mg/dL (Less than 2); pH, Urine 6.5 (5.0-9.0)
[2024-01-31 12:33] LABS: Hematocrit 45.7 % (34.9-44.5); Hemoglobin 14.7 g/dL (12.0-15.5); Mean Corpuscular HGB CONC 32.2 g/dL (32.0-36.0); Mean Corpuscular Hemoglobin 29.6 pg (27.0-33.0); Mean Corpuscular Volume 92.1 fl (81.6-98.3); Mean Platelet Volume 9.8 fl (7.4-10.4); Platelet Count 209 10x3/uL (150-450); RBC Distribution Width 12.8 % (11.5-14.5); Red Blood Cell (RBC) Count 4.96 10x6/uL (3.90-5.03); White Blood Cell (WBC) Count 8.4 10x3/uL (3.5-10.5)
[2024-01-31 12:51] LABS: INR-International Normal Ratio 1.5; PTT 38.6 sec (22.0-33.0); Prothrombin Time 16.4 sec (9.5-12.1)
[2024-01-31 12:54] LABS: ALT (SGPT) 28 U/L (8-55); AST (SGOT) 32 U/L (5-34); Albumin 4.3 g/dL (3.4-4.8); Alkaline Phosphatase 73 U/L (40-110); Anion Gap 16 mmol/L (10-20); BUN (Urea Nitrogen) 15 mg/dL (9.8-20.1); Bilirubin, Total 0.6 mg/dL (0.2-1.2); Calc. Creatinine Clearance 74 mL/min (70-130); Carbon Dioxide 27 mmol/L (23-31); Chloride 104 mmol/L (98-107); Estimated GFR 80; Globulin 2.4 g/dL (2.4-3.5); Glucose 87 mg/dL (83-110); Potassium 3.8 mmol/L (3.5-5.1); Protein, Total 6.7 g/dL (5.8-8.1); Sodium 143 mmol/L (136-145)
[2024-02-02] MEDS ORDERED: SUGAMMADEX SODIUM 200 MG/2 ML VIAL ONE (09:27)
[2024-02-02] MEDS ORDERED: fentaNYL 50 mcg/mL 1 mL Vial ONE (09:28)
[2024-02-02] MEDS ORDERED: CEFAZOLIN 2 GM VIAL ONE (09:54)
[2024-02-02] MEDS ORDERED: Protamine Sulfate 50 MG/5 ML VIAL ONE (09:54)
[2024-02-02] MEDS ORDERED: Ondansetron PF 4 MG/2 ML Vial ONE (10:16)
[2024-02-02] MEDS ORDERED: Rocuronium Bromide 10 MG/ML (10ML VIAL) ONE (10:16)
[2024-02-02] MEDS ORDERED: PROPOFOL 200 MG/20 ML VIAL ONE (10:16)
[2024-02-02] MEDS ORDERED: Lidocaine 1% PF 5 ML VIAL ONE (10:16)
[2024-02-02] MEDS ORDERED: Dexamethasone 20 MG/5 ML VIAL ONE (10:16)
[2024-02-02] MEDS ORDERED: Iopamidol 370 76% 100 ML VIAL ONE (11:44)
[2024-02-02] MEDS ORDERED: Ondansetron ODT 4 MG TAB PO PRN (14:25)
[2024-02-02] MEDS ORDERED: Acetaminophen 325 MG TAB ONE (17:06)
[2024-02-02] MEDS: Acetaminophen 325 MG TAB PO PRN (17:07)
[2024-02-02] MEDS: metFORMIN 500 MG TAB PO SCH (17:23)
[2024-02-02 19:42] VITALS: BMI 26.8
[2024-02-02] MEDS ORDERED: Dextrose 50% Abboject 50 ML SYRINGE IVP PRN (22:00)
[2024-02-02] MEDS ORDERED: HumaLOG 300 UNITS/3 ML VIAL SC PRN (22:00)
[2024-02-02] MEDS ORDERED: Glucagon 1 MG/ML KIT IM PRN (22:00)
[2024-02-02] MEDS ORDERED: Dextrose 5% in Water 1,000 ML IV PRN (22:00)
[2024-02-02] MEDS: Clopidogrel Bisulfate 75 MG TAB PO SCH (22:05)
[2024-02-02] MEDS: Atorvastatin Calcium 40 MG TAB PO SCH (22:05)
[2024-02-02] MEDS: diphenhydrAMINE 50 MG CAP PO SCH (22:05)
[2024-02-02] MEDS: HumaLOG 300 UNITS/3 ML VIAL SC PRN (22:07)
[2024-02-03 04:21] LABS: #Monocytes 0.8 thou/uL (0.11-0.59); #Neutrophils 12.5 thou/uL (1.40-6.50); %Basophils 0.1 % (0.0-1.0); %Lymphocytes 4.6 % (21.0-51.0); %Monocytes 5.9 % (0.0-10.0); %Neutrophils 88.9 % (42.0-75.0); Hematocrit 40.2 % (36.0-47.0); Hemoglobin 13.2 g/dL (12.0-16.0); Mean Corpuscular HGB CONC 32.8 g/dL (32.0-36.0); Mean Corpuscular Hemoglobin 30.6 pg (27.0-31.0); Mean Corpuscular Volume 93.1 fl (78.0-98.0); Mean Platelet Volume 9.4 fL (7.4-10.4); Platelet Count 157 10x3/uL (130-400); RBC Distribution Width 12.6 % (11.5-14.5); Red Blood Cell (RBC) Count 4.32 mill/uL (4.20-5.40)
[2024-02-03 04:45] LABS: Anion Gap 13 mmol/L (10-20); BUN (Urea Nitrogen) 11 mg/dL (9.8-20.1); Calc. Creatinine Clearance 74 mL/min (70-130); Calcium 8.8 mg/dL (7.8-10.44); Carbon Dioxide 25 mmol/L (23-31); Chloride 106 mmol/L (98-107); Estimated GFR 80; Glucose 145 mg/dL (83-110); Potassium 3.9 mmol/L (3.5-5.1); Sodium 140 mmol/L (136-145)
[2024-02-03] MEDS ORDERED: FLU VACC QS2023(65UP)/MF59C/PF 60 MCG/0.5 ML SYRINGE IM ONE (09:00)
[2024-02-03] MEDS: Aspirin 81 mg Enteric Coated Tablet PO SCH (09:34)
[2024-02-03] MEDS: Digoxin 0.125 MG TAB PO SCH (09:34)
[2024-02-03] MEDS: dilTIAZem CD 120 MG CAP PO SCH (09:35)
[2024-02-03] MEDS: Lisinopril 20 MG TAB PO SCH (09:35)
[2024-02-03] MEDS: Furosemide 20 MG TAB PO SCH (09:36)
[2024-02-03 12:59] VITALS: BP 161/101; TEMP 97.2
== END 2024-02-03 12:30 | disposition home or self-care (01) ==
LOC: INTOOBSV 02-02 07:36 → SURG A 02-02 07:36 → EDSTATUS 02-02 10:49 → 2SE 02-02 21:52 → 2NO 02-02 21:55
PROVIDERS: ADMIT Internal Medicine Cardiovascular Disease; ATTEND Internal Medicine Cardiovascular Disease
PROC: 02L73DK Occlusion of Left Atrial Appendage with Intraluminal Device, Percutaneous Approach (ICD-10-PCS; principal; 2024-02-02)
PROC: B246ZZ4 Ultrasonography of Right and Left Heart, Transesophageal (ICD-10-PCS; 2024-02-02)
DX: I48.19 Other persistent atrial fibrillation (principal); Z79.01 Long term (current) use of anticoagulants; Z79.82 Long term (current) use of aspirin; Z79.02 Long term (current) use of antithrombotics/antiplatelets; Z79.899 Other long term (current) drug therapy
CPT/HCPCS: 33340; 80048; 80053; 81003; 82962 ×2; 85025; 85027; 85347; 85610; 85730; 86850; 86900; 86901; 86920; 93005 ×2; 93306; 93312; C1759; C1760 ×2; C1817; C1894 ×2; J3010; 36415; 36416; 93010; J1100; J1815; J2405; J2704; J2720; Q9967